=== PATIENT | female | born 1955 | race Caucasian/White ===

== ENCOUNTER 2024-03-17 20:29 | Outpatient (CLI) | payer MEDICARE, OTHER, SELFPAY | END 2024-03-17 20:30 | disposition home or self-care (01) | LOC: AMB 03-22 21:57 | PROVIDERS: PCP Family Medicine; Visit Provider Family Medicine | DX: S29.9XXA Unspecified injury of thorax, initial encounter (principal); W01.0XXA Fall on same level from slipping, tripping and stumbling without subsequent striking against object, initial encounter; Y92.009 Unspecified place in unspecified non-institutional (private) residence as the place of occurrence of the external cause | CPT/HCPCS: A0425; A0429 ==